=== PATIENT | female | born 1965 | race Caucasian/White ===

== ENCOUNTER 2017-01-26 14:52 | Emergency (ER) | payer OTHER ==
[~2017-01-26] VITALS: Ht 175.3 cm; Wt 73.6 kg
[2017-01-26 14:55] VITALS: BP 149/88
[2017-01-26] MEDS ORDERED: HYDROcodone/APAP 5/325 TABLET PO ONE (15:30)
[2017-01-26] MEDS ORDERED: HYDROcodone/APAP 5/325 TABLET ONE (15:33)
== END 2017-01-26 16:27 | disposition home or self-care (01) ==
LOC: ED 15:58
DX: S39.011A Strain of muscle, fascia and tendon of abdomen, initial encounter (principal); J20.9 Acute bronchitis, unspecified; X58.XXXA Exposure to other specified factors, initial encounter; Y93.89 Activity, other specified; Y92.89 Other specified places as the place of occurrence of the external cause; Y99.8 Other external cause status
CPT/HCPCS: 99283

== ENCOUNTER 2017-03-23 12:48 | Emergency (ER) | payer OTHER ==
[~2017-03-23] VITALS: Ht 175.3 cm; Wt 74.4 kg
[2017-03-23 13:00] VITALS: BP 147/91
== END 2017-03-23 14:51 | disposition home or self-care (01) ==
LOC: ED 14:03
DX: H65.01 Acute serous otitis media, right ear (principal)
CPT/HCPCS: 99283

== ENCOUNTER 2018-02-09 19:34 | Emergency (ER) | payer SELFPAY ==
[~2018-02-09] VITALS: Ht 175.3 cm; Wt 81.0 kg
[2018-02-09] MEDS ORDERED: ASPIRIN 81 MG TABLET CHEW ONE (19:57)
[2018-02-09] MEDS ORDERED: LORazepam 1MG TABLET ONE (19:58)
[2018-02-09] MEDS ORDERED: LORazepam 1MG TABLET PO ONE (20:00)
[2018-02-09] MEDS ORDERED: ASPIRIN 81 MG TABLET CHEW PO ONE (20:00)
[2018-02-09 20:16] LABS: BASOPHILS # (AUTO) 0.09 x10^3/uL (0-0.1); BASOPHILS % (AUTO) 1 % (0-1); EOSINOPHILS # (AUTO) 0.08 x10^3/uL (0-0.4); EOSINOPHILS % (AUTO) 1 % (1-7); LYMPHOCYTES # (AUTO) 2.91 x10^3/uL (1-3.4); LYMPHOCYTES % (AUTO) 37 % (22-44); MD NO; MEAN CORPUSCULAR HEMOGLOBIN 32.2 pg (27.0-34.8); MEAN CORPUSCULAR HGB CONC 34.1 g/dL (32.4-35.8); MEAN CORPUSCULAR VOLUME 94.4 fL (80-100); MEAN PLATELET VOLUME 8.8 fL (7.4-10.4); MONOCYTES # (AUTO) 0.53 x10^3/uL (0.2-0.8); MONOCYTES % (AUTO) 7 % (2-9); NEUTROPHILS # (AUTO) 4.24 x10^3/uL (1.8-6.8); NEUTROPHILS % (AUTO) 54 % (42-75); PLATELET COUNT 265 x10^3/uL (130-400); RED BLOOD COUNT 4.78 x10^6/uL (3.82-5.3); RED CELL DISTRIBUTION WIDTH 12.7 % (9.6-15.2)
[2018-02-09 20:22] LABS: ALBUMIN 3.7 g/dL (3.4-5.0); ANION GAP 6 mmol/L (5-15); CALCIUM 8.4 mg/dL (8.5-10.1); CHLORIDE 108 mmol/L (98-107); CREATININE 0.72 mg/dL (0.55-1.02)
[2018-02-09 20:26] LABS: TROPONIN I < 0.015 ng/mL (0.000-0.045)
[2018-02-09 23:17] LABS: TROPONIN I < 0.015 ng/mL (0.000-0.045)
[2018-02-09 23:23] VITALS: BP 126/72
== END 2018-02-09 23:29 | disposition home or self-care (01) ==
LOC: ED 22:48
DX: R07.89 Other chest pain (principal); F17.210 Nicotine dependence, cigarettes, uncomplicated
CPT/HCPCS: 36415; 71046; 80048; 82040; 84484; 85025; 93005; 99284

== ENCOUNTER 2018-08-15 14:47 | Emergency (ER) | payer SELFPAY ==
[~2018-08-15] VITALS: Ht 175.3 cm; Wt 79.6 kg
[2018-08-15 14:51] VITALS: BP 144/83
[2018-08-15 15:41] LABS: ALANINE AMINOTRANSFERASE 26 U/L (12-78); ALBUMIN 3.7 g/dL (3.4-5.0); ANION GAP 7 mmol/L (5-15); CALCIUM 8.8 mg/dL (8.5-10.1); CHLORIDE 106 mmol/L (98-107); CREATININE 0.71 mg/dL (0.55-1.02)
[2018-08-15 15:43] LABS: ALKALINE PHOSPHATASE 80 U/L (45-117); BILIRUBIN,TOTAL 0.5 mg/dL (0.2-1.0); TOTAL PROTEIN 7.7 g/dL (6.4-8.2)
== END 2018-08-15 16:18 | disposition home or self-care (01) ==
LOC: ED 16:17
DX: R11.2 Nausea with vomiting, unspecified (principal); R19.7 Diarrhea, unspecified; E87.6 Hypokalemia; K21.9 Gastro-esophageal reflux disease without esophagitis; F17.200 Nicotine dependence, unspecified, uncomplicated; Z90.710 Acquired absence of both cervix and uterus
CPT/HCPCS: 36415; 80053; 99283

== ENCOUNTER 2019-12-06 18:50 | Emergency (ER) | payer SELFPAY ==
[~2019-12-06] VITALS: Ht 175.3 cm; Wt 79.7 kg
[2019-12-06 19:28] LABS: BASOPHILS % (AUTO) 1 % (0-1); EOSINOPHILS % (AUTO) 1 % (1-7); LYMPHOCYTES % (AUTO) 35 % (22-44); MEAN CORPUSCULAR HEMOGLOBIN 31.6 pg (27.0-34.8); MEAN CORPUSCULAR HGB CONC 34.2 g/dL (32.4-35.8); MEAN PLATELET VOLUME 8.9 fL (7.4-10.4); MONOCYTES % (AUTO) 6 % (2-9); NEUTROPHILS % (AUTO) 58 % (42-75); PLATELET COUNT 275 x10^3/uL (130-400); RED BLOOD COUNT 5.01 x10^6/uL (3.82-5.3); RED CELL DISTRIBUTION WIDTH 13.3 % (9.6-15.2)
[2019-12-06 19:31] LABS: MD NO
[2019-12-06 19:38] LABS: ALANINE AMINOTRANSFERASE 23 U/L (12-78); ALBUMIN 3.8 g/dL (3.4-5.0); ANION GAP 5 mmol/L (5-15); CALCIUM 9.2 mg/dL (8.5-10.1); CHLORIDE 105 mmol/L (98-107); CREATININE 0.68 mg/dL (0.55-1.02)
[2019-12-06 19:40] LABS: ALKALINE PHOSPHATASE 90 U/L (45-117); BILIRUBIN,TOTAL 0.8 mg/dL (0.2-1.0); TOTAL PROTEIN 8.1 g/dL (6.4-8.2)
--- NOTE | 2019-12-06 21:31 | NUR ---
INSULATION MECHANIC: PT AMBULATORY TO ROOM FROM LOBBY WITH STEADY GAIT AT THIS TIME WITH LEAD PROCESS ENGINEER
[2019-12-06 21:35] VITALS: BP 152/77
[2019-12-06] MEDS ORDERED: AZITHROMYCIN 500 MG TABLET PO ONE (22:30)
[2019-12-06] MEDS ORDERED: DEXAMETHASONE 4 MG TABLET PO ONE (22:30)
[2019-12-06] MEDS ORDERED: DEXAMETHASONE 4 MG TABLET ONE (23:15)
[2019-12-06] MEDS ORDERED: AZITHROMYCIN 500 MG TABLET ONE (23:15)
== END 2019-12-06 23:37 | disposition home or self-care (01) ==
LOC: ED 23:00
DX: R10.9 Unspecified abdominal pain (principal); R51.9 Headache, unspecified; R05 Cough; R07.9 Chest pain, unspecified; K21.9 Gastro-esophageal reflux disease without esophagitis; Z90.710 Acquired absence of both cervix and uterus
CPT/HCPCS: 36415; 71045; 80053; 85025; 99284

== ENCOUNTER 2020-02-01 12:03 | Emergency (ER) | payer OTHER ==
[~2020-02-01] VITALS: Ht 175.3 cm; Wt 79.0 kg
[2020-02-01] MEDS ORDERED: DEXAMETHASONE 4 MG TABLET PO ONE (13:00)
[2020-02-01] MEDS ORDERED: DEXAMETHASONE 4 MG TABLET ONE (15:22)
--- NOTE | 2020-02-01 15:26 | NUR ---
medicated, revitaled, updated on estimated poc
[2020-02-01 15:54] LABS: MICROSCOPIC NOT IND
[2020-02-01 16:09] LABS: BASOPHILS % (AUTO) 1 % (0-1); EOSINOPHILS % (AUTO) 1 % (1-7); LYMPHOCYTES % (AUTO) 30 % (22-44); MEAN CORPUSCULAR HGB CONC 33.9 g/dL (32.4-35.8); MEAN PLATELET VOLUME 8.7 fL (7.4-10.4); MONOCYTES % (AUTO) 7 % (2-9); NEUTROPHILS % (AUTO) 63 % (42-75); PLATELET COUNT 307 x10^3/uL (130-400); RED BLOOD COUNT 4.92 x10^6/uL (3.82-5.3); RED CELL DISTRIBUTION WIDTH 13.9 % (9.6-15.2)
[2020-02-01 16:11] LABS: MD NO
[2020-02-01 16:25] LABS: CALCIUM 8.6 mg/dL (8.5-10.1); CHLORIDE 107 mmol/L (98-107)
[2020-02-01 16:31] LABS: ALANINE AMINOTRANSFERASE 16 U/L (12-78); ALBUMIN 3.7 g/dL (3.4-5.0); ALKALINE PHOSPHATASE 102 U/L (45-117); ANION GAP 5 mmol/L (5-15); BILIRUBIN,TOTAL 0.9 mg/dL (0.2-1.0); CREATININE 0.65 mg/dL (0.55-1.02); TOTAL PROTEIN 7.8 g/dL (6.4-8.2)
[2020-02-01] MEDS ORDERED: AZITHROMYCIN 500 MG TABLET ONE (18:56)
[2020-02-01] MEDS ORDERED: AZITHROMYCIN 500 MG TABLET PO ONE (19:00)
--- NOTE | 2020-02-01 19:28 | NUR ---
this is a 54 yr old female with hx of pna. pt is a 1/2 pack a day smoker. pt states sob for a few days. pt here due to increase sob and states the pna went away breifly then came back.
--- NOTE | 2020-02-01 19:48 | NUR ---
PT SITITNG IN [facility] IN NO APPARENT DISTRESS ON RA. PT IS WANTING TO BE DC'D. PT EDUCATED ON WAITING FOR CT RESULTS BEFORE GETTING DC ORDERS. PT VERBALIZES UNDERSTANDING
--- NOTE | 2020-02-01 19:48 | NUR ---
REPORT RECEIVED FROM PAMELA ENGLE
[2020-02-01 20:40] VITALS: BP 122/46
--- NOTE | 2020-02-01 20:41 | NUR ---
92% RA with ambulation,. pt in no distress ambulating
== END 2020-02-01 20:59 | disposition home or self-care (01) ==
LOC: ED 13:31
DX: J15.9 Unspecified bacterial pneumonia (principal); C34.90 Malignant neoplasm of unspecified part of unspecified bronchus or lung; R06.02 Shortness of breath; F17.210 Nicotine dependence, cigarettes, uncomplicated
CPT/HCPCS: 36415; 71045; 71250; 80053; 81003; 85025; 99285

== ENCOUNTER 2020-05-22 21:22 | Inpatient (IN) | payer MEDICAID ==
[~2020-05-22] VITALS: Ht 175.3 cm; Wt 73.2 kg
[2020-05-22] MEDS: ALBUTEROL/IPRATROPIUM 2.5MG/0.5MG, 3 ML NPPB SCH ×2 (21:59→22:32)
[2020-05-22] MEDS ORDERED: SODIUM CHLORIDE 0.9% 1,000 ML IV ONE (22:00)
[2020-05-22] MEDS ORDERED: SODIUM CHLORIDE FLUSH 10ML SYR IVF ONE (22:00)
[2020-05-22 22:18] LABS: BASOPHILS % (AUTO) 1 % (0-1); EOSINOPHILS % (AUTO) 1 % (1-7); LYMPHOCYTES % (AUTO) 29 % (22-44); MD NO; MEAN CORPUSCULAR HGB CONC 34.6 g/dL (32.4-35.8); MEAN PLATELET VOLUME 8.5 fL (7.4-10.4); MONOCYTES % (AUTO) 7 % (2-9); NEUTROPHILS % (AUTO) 62 % (42-75); PLATELET COUNT 398 x10^3/uL (130-400); RED BLOOD COUNT 4.95 x10^6/uL (3.82-5.3); RED CELL DISTRIBUTION WIDTH 13.3 % (9.6-15.2)
[2020-05-22 22:27] LABS: ALANINE AMINOTRANSFERASE 21 U/L (12-78); ALBUMIN 3.4 g/dL (3.4-5.0); ANION GAP 8 mmol/L (5-15); CALCIUM 8.7 mg/dL (8.5-10.1); CHLORIDE 105 mmol/L (98-107); CREATININE 0.67 mg/dL (0.55-1.02)
[2020-05-22] MEDS ORDERED: CEFTRIAXONE PMX 1GM/50ML 50 ML ONE (22:28)
[2020-05-22] MEDS ORDERED: AZITHROMYCIN 500 MG in SODIUM CHLORIDE 0.9% 250 ML IV ONE (22:30)
[2020-05-22] MEDS ORDERED: CEFTRIAXONE PMX 1GM/50ML 50 ML IV ONE (22:30)
[2020-05-22 22:31] LABS: ALKALINE PHOSPHATASE 106 U/L (45-117); BILIRUBIN,TOTAL 0.4 mg/dL (0.2-1.0); TOTAL PROTEIN 7.6 g/dL (6.4-8.2); TROPONIN I < 0.015 ng/mL (0.000-0.045)
[2020-05-22] MEDS ORDERED: ALBUTEROL/IPRATROPIUM 2.5MG/0.5MG, 3 ML ONE (22:33)
[2020-05-22] MEDS ORDERED: SODIUM CHLORIDE 0.9% 1,000ML IVBOLUS ONE (23:00)
[2020-05-22] MEDS ORDERED: KETOROLAC 30 MG/1 ML ONE (23:03)
[2020-05-22] MEDS ORDERED: KETOROLAC 30 MG/1 ML IVPush ONE (23:30)
[2020-05-23 00:42] VITALS: BP 118/70
[2020-05-23] MEDS ORDERED: ONDANSETRON 2MG/ML, 2ML IVPush PRN (01:00)
[2020-05-23] MEDS ORDERED: morphine SULFATE 10 MG/ML, 1ML IVPush PRN (01:00)
[2020-05-23] MEDS ORDERED: LABETALOL 5MG/ML, 20ML IVPush PRN (01:00)
[2020-05-23] MEDS ORDERED: ALBUTEROL HFA 90 MCG/SPRAY INH PRN (02:00)
[2020-05-23 02:09] LABS: C-REACTIVE PROTEIN, QUANT 2.9 mg/dL (0.02-0.49)
[2020-05-23] MEDS: ENOXAPARIN 60 MG/0.6 ML SQ SCH (02:31)
[2020-05-23 04:30] LABS: MICROSCOPIC AUTO
[2020-05-23 04:31] LABS: TROPONIN I < 0.015 ng/mL (0.000-0.045)
[2020-05-23] MEDS: HYDROcodone/APAP 5/325 TABLET PO PRN ×3 (04:42→20:46)
[2020-05-23] MEDS: SENNA/DOCUSATE TABLET PO SCH (08:20)
[2020-05-23] MEDS: DOXYCYCLINE 100MG TABLET PO SCH ×2 (08:20→20:45)
[2020-05-23 08:59] VITALS: BP 117/74
[2020-05-23] MEDS ORDERED: OMNIPAQUE 350 MG/ML, 100ML BOTTLE ONE (13:22)
[2020-05-23 14:30] VITALS: BP 114/72
[2020-05-23] MEDS: ACETAMINOPHEN 325 MG TABLET PO PRN (16:40)
[2020-05-23 19:16] VITALS: BP 112/72
[2020-05-23] MEDS: CEFTRIAXONE PMX 1GM/50ML 50 ML IV SCH (22:38)
[2020-05-24 00:50] VITALS: BP 117/72
[2020-05-24] MEDS: HYDROcodone/APAP 5/325 TABLET PO PRN ×4 (01:03→23:01)
[2020-05-24] MEDS: ENOXAPARIN 60 MG/0.6 ML SQ SCH (01:04)
[2020-05-24 06:50] VITALS: BP 110/69
[2020-05-24] MEDS: SENNA/DOCUSATE TABLET PO SCH (09:40)
[2020-05-24] MEDS: DOXYCYCLINE 100MG TABLET PO SCH ×2 (09:40→20:42)
[2020-05-24] MEDS ORDERED: CHLORHEXIDINE 15 ML UDC ONE (13:59)
[2020-05-24] MEDS ORDERED: MIDAZOLAM 1 MG/ML, 2ML ONE (14:03)
[2020-05-24] MEDS ORDERED: PROPOFOL 10 MG/ML, 20ML ONE (14:03)
[2020-05-24] MEDS ORDERED: ROCURONIUM 10MG/ML,5ML ONE (14:03)
[2020-05-24] MEDS ORDERED: FENTANYL PF 250 MCG/5ML ONE (14:03)
[2020-05-24] MEDS ORDERED: SUCCINYLCHOLINE 20 MG/ML, 10ML ONE (14:03)
[2020-05-24] MEDS ORDERED: DEXAMETHASONE 4 MG/ML, 5ML ONE (14:04)
[2020-05-24] MEDS ORDERED: CHLORHEXIDINE 15 ML UDC PO ONE (14:30)
[2020-05-24] MEDS ORDERED: ONDANSETRON 2MG/ML, 2ML ONE (14:46)
[2020-05-24] MEDS ORDERED: OXYcodone 5 MG/5 ML ORAL.SOL UDC PO PRN (15:00)
[2020-05-24] MEDS ORDERED: LABETALOL 5MG/ML, 20ML IV PRN (15:00)
[2020-05-24] MEDS ORDERED: PROMETHAZINE 25 MG/ML, 1ML IVPush PRN (15:00)
[2020-05-24] MEDS ORDERED: DIAZEPAM 5 MG/ML, 2ML IVPush PRN (15:00)
[2020-05-24] MEDS ORDERED: ACETAMINOPHEN 325 MG TABLET PO PRN (15:00)
[2020-05-24] MEDS ORDERED: ONDANSETRON 2MG/ML, 2ML IVPush PRN (15:00)
[2020-05-24] MEDS ORDERED: MIDAZOLAM 1 MG/ML, 2ML IV PRN (15:00)
[2020-05-24] MEDS ORDERED: EPHEDRINE 50 MG/ML, 1ML IVPush PRN (15:00)
[2020-05-24] MEDS ORDERED: DIPHENHYDRAMINE 50 MG/ML, 1ML IVPush PRN ×2 (15:00)
[2020-05-24] MEDS ORDERED: PROMETHAZINE 12.5 MG SUPP PR PRN (15:00)
[2020-05-24] MEDS ORDERED: HYDROmorphone 1 MG/ML, 1ML INJ IVPush PRN (15:00)
[2020-05-24] MEDS ORDERED: MEPERIDINE/PF 25MG/0.5ML IVPush PRN (15:00)
[2020-05-24] MEDS ORDERED: FENTANYL PF 100 MCG/2ML IV PRN (15:00)
[2020-05-24] MEDS ORDERED: hydrALAzine 20 MG/ML, 1ML IV PRN (15:00)
[2020-05-24] MEDS ORDERED: ALBUTEROL SULFATE 2.5 MG/3 ML NPPB PRN (15:00)
[2020-05-24] MEDS ORDERED: EPHEDRINE 50 MG/ML, 1ML ONE (15:16)
[2020-05-24] MEDS ORDERED: GLYCOPYRROLATE 0.2MG/1ML, 5ML ONE (15:24)
[2020-05-24] MEDS ORDERED: NEOSTIGMINE 1 MG/ML, 10ML ONE (15:24)
[2020-05-24] MEDS ORDERED: OXYcodone 5 MG/5 ML ORAL.SOL UDC ONE (15:41)
[2020-05-24] MEDS ORDERED: HYDROmorphone 1 MG/ML, 1ML INJ ONE (15:41)
[2020-05-24] MEDS ORDERED: FENTANYL PF 100 MCG/2ML ONE (15:41)
[2020-05-24] MEDS ORDERED: morphine SULFATE 10 MG/ML, 1ML IVPush PRN (16:00)
[2020-05-24 16:44] VITALS: BP 96/58
[2020-05-24 19:17] VITALS: BP 98/59
[2020-05-24] MEDS: methylPREDNISolone SOD SUCC 40 MG/ML IV SCH (20:42)
[2020-05-24] MEDS: LIDODERM 5% PATCH TD SCH (20:43)
[2020-05-24] MEDS: CEFTRIAXONE PMX 1GM/50ML 50 ML IV SCH (22:27)
[2020-05-24 22:59] VITALS: BP 123/74
[2020-05-25 01:11] VITALS: BP 110/62
[2020-05-25] MEDS: ENOXAPARIN 60 MG/0.6 ML SQ SCH (02:38)
[2020-05-25 05:30] LABS: BASOPHILS % (AUTO) 0 % (0-1); EOSINOPHILS % (AUTO) 0 % (1-7); LYMPHOCYTES % (AUTO) 11 % (22-44); MEAN CORPUSCULAR HGB CONC 34.1 g/dL (32.4-35.8); MEAN PLATELET VOLUME 8.6 fL (7.4-10.4); MONOCYTES % (AUTO) 2 % (2-9); NEUTROPHILS % (AUTO) 87 % (42-75); PLATELET COUNT 350 x10^3/uL (130-400); RED BLOOD COUNT 4.42 x10^6/uL (3.82-5.3); RED CELL DISTRIBUTION WIDTH 12.8 % (9.6-15.2)
[2020-05-25 05:32] LABS: MD NO
[2020-05-25 05:43] LABS: ANION GAP 5 mmol/L (5-15); CALCIUM 8.7 mg/dL (8.5-10.1); CHLORIDE 104 mmol/L (98-107); CREATININE 0.58 mg/dL (0.55-1.02)
[2020-05-25 06:39] VITALS: BP 130/73
[2020-05-25] MEDS: GUAIFENESIN/COD200MG-20MG/10ML LIQUID PO PRN (06:41)
[2020-05-25] MEDS: HYDROcodone/APAP 5/325 TABLET PO PRN ×2 (06:42→21:18)
[2020-05-25] MEDS: DOXYCYCLINE 100MG TABLET PO SCH ×2 (08:52→20:22)
[2020-05-25] MEDS: SENNA/DOCUSATE TABLET PO SCH (08:52)
[2020-05-25] MEDS: methylPREDNISolone SOD SUCC 40 MG/ML IV SCH ×2 (08:52→20:22)
[2020-05-25] MEDS ORDERED: LORazepam 0.5MG TABLET PO ONE (12:00)
[2020-05-25] MEDS ORDERED: LORazepam 0.5MG TABLET ONE (12:04)
[2020-05-25] MEDS ORDERED: GADOTERATE 10 MMOL/20ML SYR ONE (12:51)
[2020-05-25 13:11] VITALS: BP 102/64
[2020-05-25 19:14] VITALS: BP 122/69
[2020-05-25] MEDS: LIDODERM 5% PATCH TD SCH (20:28)
[2020-05-25] MEDS: CEFTRIAXONE PMX 1GM/50ML 50 ML IV SCH (21:18)
[2020-05-26 01:07] VITALS: BP 119/74
[2020-05-26] MEDS: ENOXAPARIN 60 MG/0.6 ML SQ SCH (02:48)
[2020-05-26] MEDS: HYDROcodone/APAP 5/325 TABLET PO PRN ×4 (02:49→20:03)
[2020-05-26 06:41] LABS: BASOPHILS % (AUTO) 1 % (0-1); EOSINOPHILS % (AUTO) 0 % (1-7); LYMPHOCYTES % (AUTO) 15 % (22-44); MEAN CORPUSCULAR HEMOGLOBIN 31.1 pg (27.0-34.8); MEAN CORPUSCULAR HGB CONC 33.7 g/dL (32.4-35.8); MEAN PLATELET VOLUME 8.4 fL (7.4-10.4); MONOCYTES % (AUTO) 5 % (2-9); NEUTROPHILS % (AUTO) 80 % (42-75); PLATELET COUNT 352 x10^3/uL (130-400); RED BLOOD COUNT 4.52 x10^6/uL (3.82-5.3)
[2020-05-26 06:42] LABS: MD NO
[2020-05-26 08:32] VITALS: BP 125/63
[2020-05-26] MEDS: DOXYCYCLINE 100MG TABLET PO SCH ×2 (08:38→20:02)
[2020-05-26] MEDS: SENNA/DOCUSATE TABLET PO SCH (08:38)
[2020-05-26] MEDS: methylPREDNISolone SOD SUCC 40 MG/ML IV SCH ×2 (08:39→20:02)
[2020-05-26 12:04] VITALS: BP 113/73
[2020-05-26 19:13] VITALS: BP 103/67
[2020-05-26] MEDS: LIDODERM 5% PATCH TD SCH (20:02)
[2020-05-26] MEDS: CEFTRIAXONE PMX 1GM/50ML 50 ML IV SCH (21:24)
[2020-05-26] MEDS: ENOXAPARIN 40 MG/0.4 ML SQ SCH (21:24)
[2020-05-27 01:32] VITALS: BP 117/74
[2020-05-27] MEDS: HYDROcodone/APAP 5/325 TABLET PO PRN ×4 (04:20→22:51)
[2020-05-27 05:43] LABS: BASOPHILS % (AUTO) 0 % (0-1); EOSINOPHILS % (AUTO) 0 % (1-7); LYMPHOCYTES % (AUTO) 18 % (22-44); MEAN CORPUSCULAR HEMOGLOBIN 31.9 pg (27.0-34.8); MEAN CORPUSCULAR HGB CONC 34.1 g/dL (32.4-35.8); MEAN PLATELET VOLUME 8.6 fL (7.4-10.4); MONOCYTES % (AUTO) 5 % (2-9); NEUTROPHILS % (AUTO) 77 % (42-75); PLATELET COUNT 331 x10^3/uL (130-400); RED CELL DISTRIBUTION WIDTH 13.1 % (9.6-15.2)
[2020-05-27 05:49] LABS: MD NO
[2020-05-27 07:00] VITALS: BP 117/74
[2020-05-27] MEDS: DOXYCYCLINE 100MG TABLET PO SCH ×2 (09:00→20:06)
[2020-05-27] MEDS: methylPREDNISolone SOD SUCC 40 MG/ML IV SCH ×2 (09:02→20:06)
[2020-05-27] MEDS: PANTOPRAZOLE 40MG TABLET PO SCH ×2 (09:03→20:06)
[2020-05-27] MEDS: SENNA/DOCUSATE TABLET PO SCH (09:04)
[2020-05-27 14:31] VITALS: BP 102/55
[2020-05-27 18:29] VITALS: BP 108/69
[2020-05-27] MEDS: CEFTRIAXONE PMX 1GM/50ML 50 ML IV SCH (22:39)
[2020-05-27] MEDS: ENOXAPARIN 40 MG/0.4 ML SQ SCH (22:40)
[2020-05-27] MEDS: LIDODERM 5% PATCH TD SCH (22:41)
[2020-05-28 01:20] VITALS: BP 113/67
[2020-05-28 06:24] VITALS: BP 129/66
[2020-05-28] MEDS: PANTOPRAZOLE 40MG TABLET PO SCH ×2 (07:46→21:25)
[2020-05-28] MEDS: methylPREDNISolone SOD SUCC 40 MG/ML IV SCH ×2 (07:46→21:25)
[2020-05-28] MEDS: DOXYCYCLINE 100MG TABLET PO SCH ×2 (07:46→21:25)
[2020-05-28] MEDS: SENNA/DOCUSATE TABLET PO SCH (07:46)
[2020-05-28] MEDS: HYDROcodone/APAP 5/325 TABLET PO PRN (07:46)
[2020-05-28 12:11] VITALS: BP 100/64
[2020-05-28] MEDS: OXYcodone IR 5MG TABLET PO PRN ×3 (12:16→22:44)
[2020-05-28 18:22] VITALS: BP 105/68
[2020-05-28 21:18] VITALS: BP 112/73
[2020-05-28 22:40] VITALS: BP 113/75
[2020-05-28] MEDS: ACETAMINOPHEN 325 MG TABLET PO PRN (22:43)
[2020-05-28] MEDS: CEFTRIAXONE PMX 1GM/50ML 50 ML IV SCH (22:45)
[2020-05-28] MEDS: ENOXAPARIN 40 MG/0.4 ML SQ SCH (22:46)
[2020-05-28] MEDS: LIDODERM 5% PATCH TD SCH (22:46)
[2020-05-29 00:31] VITALS: BP 113/75
[2020-05-29] MEDS: ACETAMINOPHEN 325 MG TABLET PO PRN ×4 (06:25→21:28)
[2020-05-29] MEDS: OXYcodone IR 5MG TABLET PO PRN ×4 (06:25→21:30)
[2020-05-29 06:29] VITALS: BP 121/78
[2020-05-29] MEDS: PANTOPRAZOLE 40MG TABLET PO SCH ×2 (09:01→21:29)
[2020-05-29] MEDS: SENNA/DOCUSATE TABLET PO SCH (09:01)
[2020-05-29] MEDS: DOXYCYCLINE 100MG TABLET PO SCH ×2 (09:01→21:29)
[2020-05-29] MEDS: methylPREDNISolone SOD SUCC 40 MG/ML IV SCH ×2 (09:02→21:29)
[2020-05-29 09:24] LABS: BASOPHILS % (AUTO) 0 % (0-1); EOSINOPHILS % (AUTO) 0 % (1-7); LYMPHOCYTES % (AUTO) 21 % (22-44); MEAN CORPUSCULAR HEMOGLOBIN 31.2 pg (27.0-34.8); MEAN CORPUSCULAR HGB CONC 33.5 g/dL (32.4-35.8); MEAN PLATELET VOLUME 8.5 fL (7.4-10.4); MONOCYTES % (AUTO) 5 % (2-9); NEUTROPHILS % (AUTO) 73 % (42-75); PLATELET COUNT 381 x10^3/uL (130-400); RED BLOOD COUNT 5.03 x10^6/uL (3.82-5.3); RED CELL DISTRIBUTION WIDTH 13.4 % (9.6-15.2)
[2020-05-29 09:26] LABS: MD NO
[2020-05-29 09:31] LABS: ANION GAP 9 mmol/L (5-15); CALCIUM 8.5 mg/dL (8.5-10.1); CHLORIDE 100 mmol/L (98-107); CREATININE 0.68 mg/dL (0.55-1.02)
[2020-05-29 11:39] VITALS: BP 119/74
[2020-05-29] MEDS ORDERED: SENN-211 PO ×2 (14:22)
[2020-05-29] MEDS ORDERED: OXYC10TA6 PO ×2 (14:22)
[2020-05-29] MEDS ORDERED: AMOX1TAB64 PO ×2 (14:22)
[2020-05-29] MEDS ORDERED: ALBU18HF INH ×2 (14:22)
[2020-05-29] MEDS ORDERED: DOXY100T PO ×2 (14:22)
[2020-05-29] MEDS ORDERED: GABA300C PO ×2 (14:22)
[2020-05-29] MEDS ORDERED: DEXA4TAB66 PO ×2 (14:22)
[2020-05-29] MEDS ORDERED: PANT40TA6 PO ×2 (14:22)
[2020-05-29] MEDS ORDERED: NICO-486 TD ×2 (14:27)
[2020-05-29] MEDS ORDERED: LIDO700A20 TD ×2 (14:27)
[2020-05-29] MEDS ORDERED: ONDA4TAB7 PO ×2 (14:36)
[2020-05-29 20:14] VITALS: BP 119/77
[2020-05-29] MEDS: CEFTRIAXONE PMX 1GM/50ML 50 ML IV SCH (22:41)
[2020-05-29] MEDS: ENOXAPARIN 40 MG/0.4 ML SQ SCH (22:42)
[2020-05-29] MEDS: LIDODERM 5% PATCH TD SCH (23:00)
[2020-05-30 02:15] VITALS: BP 115/69
[2020-05-30] MEDS: ACETAMINOPHEN 325 MG TABLET PO PRN ×4 (02:30→18:16)
[2020-05-30] MEDS: OXYcodone IR 5MG TABLET PO PRN ×5 (02:32→22:21)
[2020-05-30 06:28] VITALS: BP 131/79
[2020-05-30] MEDS: DOXYCYCLINE 100MG TABLET PO SCH ×2 (09:33→22:19)
[2020-05-30] MEDS: PANTOPRAZOLE 40MG TABLET PO SCH ×2 (09:33→22:19)
[2020-05-30] MEDS: SENNA/DOCUSATE TABLET PO SCH (09:33)
[2020-05-30] MEDS: methylPREDNISolone SOD SUCC 40 MG/ML IV SCH ×2 (09:42→22:19)
[2020-05-30 11:30] VITALS: BP 117/70
[2020-05-30] MEDS: GUAIFENESIN/COD200MG-20MG/10ML LIQUID PO PRN (14:04)
[2020-05-30] MEDS ORDERED: DEXA4TAB66 PO (14:22)
[2020-05-30] MEDS ORDERED: SENN-211 PO (14:22)
[2020-05-30] MEDS ORDERED: ALBU18HF INH (14:22)
[2020-05-30] MEDS ORDERED: PANT40TA6 PO (14:22)
[2020-05-30] MEDS ORDERED: DOXY100T PO (14:22)
[2020-05-30] MEDS ORDERED: ONDA4TAB7 PO (14:22)
[2020-05-30] MEDS ORDERED: NICO-486 TD (14:22)
[2020-05-30] MEDS ORDERED: AMOX1TAB64 PO (14:22)
[2020-05-30] MEDS ORDERED: LIDO700A20 TD (14:22)
[2020-05-30] MEDS ORDERED: GABA300C PO (14:22)
[2020-05-30 21:49] VITALS: BP 104/66
[2020-05-30] MEDS: CEFTRIAXONE PMX 1GM/50ML 50 ML IV SCH (22:19)
[2020-05-30] MEDS: ENOXAPARIN 40 MG/0.4 ML SQ SCH (22:23)
[2020-05-30] MEDS: LIDODERM 5% PATCH TD SCH (23:00)
[2020-05-31] MEDS: GABAPENTIN 300 MG CAPSULE PO PRN ×2 (00:42→14:00)
[2020-05-31 01:34] VITALS: BP 109/67
[2020-05-31] MEDS: OXYcodone IR 5MG TABLET PO PRN ×3 (03:49→14:37)
[2020-05-31 06:55] VITALS: BP 115/73
[2020-05-31] MEDS: SENNA/DOCUSATE TABLET PO SCH (09:04)
[2020-05-31] MEDS: methylPREDNISolone SOD SUCC 40 MG/ML IV SCH (09:04)
[2020-05-31] MEDS: PANTOPRAZOLE 40MG TABLET PO SCH (09:04)
[2020-05-31] MEDS: DOXYCYCLINE 100MG TABLET PO SCH (09:04)
[2020-05-31 13:12] VITALS: BP 107/71
[2020-05-31] MEDS: LIDODERM 5% PATCH TD SCH (13:59)
[2020-05-31] MEDS ORDERED: OXYC10TA6 PO (16:33)
== END 2020-05-31 15:24 | disposition home or self-care (01) | DRG 136 ==
LOC: ED 23:17 → EDIP 23:33 → 4EST 23:55 → 4WST 05-26 08:53 → DCLOUNGE 05-31 15:10
PROVIDERS: ADMIT Family Medicine; ATTEND Internal Medicine
PROC: 07D78ZX Extraction of Thorax Lymphatic, Via Natural or Artificial Opening Endoscopic, Diagnostic (ICD-10-PCS; 2020-05-24)
PROC: 0BJ08ZZ Inspection of Tracheobronchial Tree, Via Natural or Artificial Opening Endoscopic (ICD-10-PCS; principal; 2020-05-24 15:00)
DX: C34.90 Malignant neoplasm of unspecified part of unspecified bronchus or lung (principal); J96.01 Acute respiratory failure with hypoxia; J98.11 Atelectasis; M54.9 Dorsalgia, unspecified; M79.632 Pain in left forearm; F17.210 Nicotine dependence, cigarettes, uncomplicated; J43.9 Emphysema, unspecified; Z20.822 Contact with and (suspected) exposure to COVID-19; Z80.0 Family history of malignant neoplasm of digestive organs; Z82.49 Family history of ischemic heart disease and other diseases of the circulatory system; Z85.118 Personal history of other malignant neoplasm of bronchus and lung; Z90.710 Acquired absence of both cervix and uterus; Z91.040 Latex allergy status; J18.9 Pneumonia, unspecified organism
CPT/HCPCS: 31622; 31652; 36415; 70553; 71045; 71260; 74177; 80048; 80053; 81001; 83605; 83615; 83735; 83880; 84100; 84145; 84484; 85025; 85379; 86140; 87040; 87086; 87205; 88172; 88173; 88177; 88305; 93005; 93306; 96374; 96375; 99291; G0378; J0456; J0696; J1100; J1650; J1885; J2250; J2405; J2704; J2710; J3010; Q9967; A9575; J0330; J2270; J2920; J7030; J7050; J7512; U0003